=== PATIENT | male | born 1985 ===

== ENCOUNTER 2016-09-17 18:26 | Emergency (ER) | payer OTHER ==
[~2016-09-17] VITALS: Ht 172.7 cm; Wt 68.5 kg
[2016-09-17 18:38] VITALS: Ht 172.7 cm; Wt 68.5 kg
[2016-09-17] MEDS ORDERED: DIPHTH/TET/ACEL PERTUSS (ADULT) 0.5 ML VIAL IM* ONE (21:00)
[2016-09-17] MEDS ORDERED: clonAZEPAM 0.5 MG TAB PO ONE (21:00)
[2016-09-17] MEDS ORDERED: CEFAZOLIN 1 GM INJ IM ONE (21:00)
--- NOTE | 2016-09-17 21:01 | ERD ---
ER Documentation Chief Complaint Date/Time DATE: 09/17/16 TIME: 20:54 Chief Complaint left thumb laceration w/ left hand pain HPI This is a 30-year-old male who states he has a history of anxiety and depression and bronchitis. He presents to the emergency department after he had an accidental cut to the palmar surface of his left thumb roughly 24 hours ago. He states he had reached underneath a car seat to grab something when he cut his left thumb on a sharp object. He stated was a minimal amount of swelling and pain but denies any numbness or tingling of his left hand. He also states he presented to the emergency department today requesting for Klonopin as he normally takes 2 mg on a daily basis and has run out of his medications. He denies any suicidal or homicidal thoughts or ideations. He states that the pain of his left thumb is localized to the area where the laceration occurred and is 4 out of 10 in intensity. He is right-handed dominant ROS All systems reviewed and are negative except as per history of present illness. Medications Home Meds Active Scripts Sulfamethoxazole-Trimethoprim* (Bactrim* DS) 800-160 Mg Tab, 1 TAB PO BID, #20 TAB Prov:BEHZAD DE LA ROSA 09/17/16 Cephalexin* (Keflex*) 500 Mg Capsule, 500 MG PO Q6, #28 CAP Prov:BEHZAD DE LA ROSA 09/17/16 Allergies Allergies: Coded Allergies: No Known Allergy (Unverified , 09/17/16) PMhx/Soc Medical and Surgical Hx: pt denies Surgical Hx Hx Miscellaneous Medical Probl: Yes (HYPOTHYROIDISM) Hx Alcohol Use: No Hx Substance Use: No Hx Tobacco Use: No Smoking Status: Never smoker Physical Exam Vitals Vital Signs Date Time Temp Pulse Resp B/P Pulse Ox O2 Delivery O2 Flow Rate FiO2 09/17/16 18:38 97.5 114 20 144/98 100 Physical Exam Constitutional:Well-developed. Well-nourished. HEENT:Normocephalic. Atraumatic.Pupils were 5 mm equal round reactive to light. Moist mucous membranes.No tonsillar exudates. No nasoseptal hematoma. No hemotympanum. Neck: No nuchal rigidity. No lymphadenopathy. No posterior cervical spine tenderness or step-offs. Respiratory: Not using accessory muscles of respiration.Lungs were clear to auscultation bilaterally. No rhonchi. No rales. No wheezing. Cardiovascular: Regular rate regular rhythm.No murmurs. No rubs were appreciated.S1, S2 normal. Distal pulses are palpable 2+ bilaterally. GI: Abdomen was soft. Nontender. Non Distended. No pulsatile abdominal masses or bruits. No rebound. No guarding. Bowel sounds were present and normal. Muscle skeletal: Full range of motion of both the upper and lower extremities bilaterally.Normal muscle tone.No assymetrical calf tenderness or swelling. Skin: No petechia, no purpura. No lesions on the palms or the soles of the feet. No maculopapular rash. 2 cm linear laceration over the palmar surface of the distal phalanx of the left thumb. No fusiform swelling of the left thumb. No tenderness over the flexor tendon sheath of the left thumb. Left thumb was not held in slight flexion and no tenderness with passive extension of the left thumb. Patient was able to oppose all digits. NEURO: Patient was alert, awake, orientated x3.No facial droop. Gait observed and normal with no ataxia.Speech had regular rate and rhythm. No focal neurological deficits. Sensation intact over the radial ulnar and median nerve distribution of the left upper extremity. Results 24 hrs Current Medications Medications (Trade) Dose Ordered Sig/Diane Route PRN Reason Start Time Stop Time Status Last Admin Dose Admin Clonazepam (Klonopin) 2 mg ONCE ONCE PO 09/17/16 21:00 09/17/16 21:01 DC 09/17/16 21:02 Cefazolin Sodium (Ancef) 1 gm ONCE ONCE IM 09/17/16 21:00 09/17/16 21:01 DC 09/17/16 21:02 Diphtheria/ Tetanus/Acell Pertussis (Adacel) 0.5 ml ONCE ONCE IM* 09/17/16 21:00 09/17/16 21:01 DC 09/17/16 21:01 Procedures/MDM This patient presented to the emergency department with a laceration to the left thumb that was superficial and did not require suture repair. The injury had occurred 24 hours prior to arrival on the resolve the granulation tissue that had formed. There is no evidence of tenosynovitis. I obtained a radiographic imaging to make sure there is no foreign body and there was no evidence of flexor or extensor tendon injury. The patient received a tetanus toxoid update as well as 1 g of Ancef IM. The patient stated he was feeling anxious with dilated pupils. He states he normally takes Klonopin on a regular days basis but had run out of his medication several days ago. He was given Klonopin in the emergency department and he stated he will need to follow-up with his primary care physician to have these medications refilled. The patient denied any suicidal homicidal ideations. He had no physical exam findings to suggest psychosis The patient was discharged home in fair condition. They were instructed to return to the emergency department at any time if there was any worsening of their condition. The patient stated they would follow up with their PCP in the next 24-48 hours to initiate a suitable medication regimen under the care of their PCP as well as to allow their PCP to monitor any drug reactions. The patient was discharged home with prescriptions after they gave informed consent to the new medication. They were also fully informed by myself on the adverse effects and adverse drug interactions in order to provide adequate safeguards to prevent possible adverse reactions to medications. Please note that at that time the patient was to be discharged he started to request a prescription for opiate analgesic medication. He stated he wanted a prescription for oxycodone or Tylenol 3 with codeine. I stated I would write him a prescription for Motrin however he stated that was not good enough and he was further requesting Vicodin, Percocet, codeine with cough syrup, [place]. Again I stated the patient I did not feel comfortable writing for prescriptions of opiate analgesic medication for the patient is a healthy he was demonstrating drug-seeking behavior. The patient was very upset however I felt it was not required to receive opiates for the patient's minor laceration and again his drug-seeking behavior was concerning. He became more upset and security had to escort the patient out. Departure Diagnosis: Primary Impression: Laceration of left thumb with delay in treatment Encounter type: initial encounter Qualified Code: S61.012A - Laceration of left thumb with delay in treatment, initial encounter Condition: Serious BEHZAD DE LA ROSA Sep 17, 2016 21:01
[2016-09-17] MEDS ORDERED: BACTDS PO (21:02)
[2016-09-17] MEDS ORDERED: CEPH-443 PO (21:02)
--- NOTE | 2016-09-17 22:12 | RADRPT ---
PROCEDURE: XR finger. CLINICAL INDICATION: Left thumb laceration TECHNIQUE: PA, oblique and lateral views of the left thumb were obtained. COMPARISON: None available. FINDINGS: Mineralization is within normal limits. No fracture or osseous lesion is identified. Joint spaces are preserved. Soft tissue defect along the palmar surface of the interphalangeal joint is consiste nt with the laceration provided in the history. No radiopaque foreign body is present. RPTAT:HJJR IMPRESSION: Linear soft tissue defect anterior to the interphalangeal joint compatible with the provided history of laceration without associated osseous abnormality or retained radiopaque foreign body. Physician Catherine Date Time Electronically viewed and signed by Physician Catherine on 09/17/2016 22:11 JR/
== END 2016-09-17 22:05 | disposition home or self-care (01) ==
LOC: FTE 18:26 → E/R 22:05
DX: S61.012A Laceration without foreign body of left thumb without damage to nail, initial encounter (principal); E03.9 Hypothyroidism, unspecified; W25.XXXA Contact with sharp glass, initial encounter; Y92.9 Unspecified place or not applicable; Z23 Encounter for immunization
CPT/HCPCS: 29130; 73140; 90471; 90715; 96372; J0690; Z7502; Z7610